=== PATIENT | male | born 1960 | race Caucasian/White ===

== ENCOUNTER 2021-12-01 10:35 | Inpatient (IN) | payer MEDICARE, MEDICAID ==
[~2021-12-01] VITALS: Ht 195.6 cm; Wt 124.7 kg
[2021-12-01 11:41] LABS: HEMOGLOBIN 12.5 gm/dl (14.0-17.5); RED BLOOD COUNT 4.13 M/UL (4.20-5.50); WHITE BLOOD COUNT 9.7 K/UL (4.5-11.0)
[2021-12-01 12:10] LABS: BUN/CREATININE RATIO 25 (0-10)
[2021-12-01] MEDS ORDERED: CYMBALTA30 MG PO (16:08)
[2021-12-01] MEDS ORDERED: DETROL2 MG PO (16:09)
[2021-12-01] MEDS ORDERED: BACLOFEN20 MG PO (16:09)
[2021-12-01] MEDS ORDERED: ZYPREXA20 MG PO (16:09)
[2021-12-01] MEDS ORDERED: SENNA8.6 MG PO (16:10)
[2021-12-01] MEDS ORDERED: LACTULOSE10 GM/15 M PO (16:11)
[2021-12-01] MEDS ORDERED: MILK OF MAGNESI30 ML PO (16:11)
[2021-12-01] MEDS ORDERED: ACETAMINOPHEN500 MG PO (16:11)
[2021-12-01] MEDS ORDERED: VITAMIN B-1100 M1 PO (16:12)
[2021-12-02 05:21] LABS: HEMOGLOBIN 12.2 gm/dl (14.0-17.5); RED BLOOD COUNT 3.99 M/UL (4.20-5.50); WHITE BLOOD COUNT 8.6 K/UL (4.5-11.0)
[2021-12-02 06:16] LABS: BUN/CREATININE RATIO 20 (0-10)
[2021-12-03 04:43] LABS: ACINETOBACTER BAUMANNII Not Detected (Negative); CANDIDA ALBICANS Not Detected (Negative); CANDIDA KRUSEI Not Detected (Negative); CANDIDA TROPICALIS Not Detected (Negative); ENTEROCOCCUS Not Detected (Negative); ESCHERICHIA COLI Not Detected (Negative); HAEMOPHILUS INFLUENZAE Not Detected (Negative); KLEBSIELLA OXYTOCA Not Detected (Negative); KLEBSIELLA PNEUMONIAE Not Detected (Negative); KPC-CARBAPENEM-RESISTANCE GENE Not Detected (Negative); PROTEUS Not Detected (Negative); PSEUDOMONAS AERUGINOSA Not Detected (Negative); SERRATIA MARCESANS Not Detected (Negative); STAPHYLOCOCCUS AUREUS Not Detected (Negative); STREP AGALACTIAE (GROUP B) Not Detected (Negative); STREP PYOGENES (GROUP A) Not Detected (Negative); STREPTOCOCCUS Not Detected (Negative); vanA/B (VANCOMYCIN RESIST GENE Not Detected (Negative)
[2021-12-03 04:46] LABS: STAPHYLOCOCCUS DETECTED (Negative); mecA (METHICILLIN RESIST GENE DETECTED (Negative)
[2021-12-03 05:58] LABS: HEMOGLOBIN 12.1 gm/dl (14.0-17.5); RED BLOOD COUNT 3.92 M/UL (4.20-5.50); WHITE BLOOD COUNT 6.6 K/UL (4.5-11.0)
[2021-12-03 06:32] LABS: BUN/CREATININE RATIO 21 (0-10)
[2021-12-05 07:40] LABS: BUN/CREATININE RATIO 16 (0-10); HEMOGLOBIN 12.2 gm/dl (14.0-17.5); RED BLOOD COUNT 4.05 M/UL (4.20-5.50); WHITE BLOOD COUNT 5.8 K/UL (4.5-11.0)
[2021-12-07 08:06] LABS: HEMOGLOBIN 12.7 gm/dl (14.0-17.5); RED BLOOD COUNT 4.22 M/UL (4.20-5.50); WHITE BLOOD COUNT 6.9 K/UL (4.5-11.0)
[2021-12-07 08:27] LABS: BUN/CREATININE RATIO 23 (0-10)
[2021-12-08 07:39] LABS: BUN/CREATININE RATIO 25 (0-10)
[2021-12-09 08:25] LABS: BUN/CREATININE RATIO 27 (0-10)
[2021-12-10 08:48] LABS: BUN/CREATININE RATIO 31 (0-10)
[2021-12-12 06:58] LABS: HEMOGLOBIN 12.3 gm/dl (14.0-17.5); WHITE BLOOD COUNT 5.8 K/UL (4.5-11.0)
[2021-12-12 07:19] LABS: BUN/CREATININE RATIO 37 (0-10)
[2021-12-13 05:50] LABS: BUN/CREATININE RATIO 43 (0-10)
[2021-12-18 05:26] LABS: RED BLOOD COUNT 4.26 M/UL (4.20-5.50); WHITE BLOOD COUNT 5.4 K/UL (4.5-11.0)
[2021-12-18 05:46] LABS: BUN/CREATININE RATIO 45 (0-10)
[2021-12-24 06:42] LABS: HEMOGLOBIN 12.7 gm/dl (14.0-17.5); RED BLOOD COUNT 4.15 M/UL (4.20-5.50); WHITE BLOOD COUNT 4.8 K/UL (4.5-11.0)
[2021-12-24 07:17] LABS: BUN/CREATININE RATIO 43 (0-10)
[2021-12-27 06:54] LABS: HEMOGLOBIN 12.9 gm/dl (14.0-17.5); RED BLOOD COUNT 4.25 M/UL (4.20-5.50); WHITE BLOOD COUNT 4.7 K/UL (4.5-11.0)
[2021-12-27 07:18] LABS: BUN/CREATININE RATIO 51 (0-10)
[2021-12-28 04:04] LABS: HEMOGLOBIN 13.2 gm/dl (14.0-17.5); RED BLOOD COUNT 4.38 M/UL (4.20-5.50); WHITE BLOOD COUNT 5.3 K/UL (4.5-11.0)
[2021-12-28 04:30] LABS: BUN/CREATININE RATIO 46 (0-10)
[2021-12-29 03:19] LABS: HEMOGLOBIN 13.2 gm/dl (14.0-17.5); RED BLOOD COUNT 4.31 M/UL (4.20-5.50); WHITE BLOOD COUNT 5.9 K/UL (4.5-11.0)
[2021-12-29 03:44] LABS: BUN/CREATININE RATIO 47 (0-10)
[2021-12-30 09:24] LABS: HEMOGLOBIN 13.3 gm/dl (14.0-17.5); RED BLOOD COUNT 4.27 M/UL (4.20-5.50); WHITE BLOOD COUNT 5.2 K/UL (4.5-11.0)
[2021-12-30 09:42] LABS: BUN/CREATININE RATIO 44 (0-10)
[2021-12-30] MEDS ORDERED: POLYETHYLENE GL17 GM PO (15:57)
[2021-12-30] MEDS ORDERED: LOPRESSOR 25 MG25 MG PO (15:57)
[2021-12-30] MEDS ORDERED: AMLODIPINE BESYL5 MG PO (15:57)
== END 2021-12-30 19:05 | disposition home health service (06) | DRG 602 ==
LOC: ER1 10:35 → CDU 15:07 → MED SURG 4 15:07
PROVIDERS: Internal Medicine; Internal Medicine Infectious Disease; Physician Assistant; ADMIT Internal Medicine
PROC: 0S9B3ZX Drainage of Left Hip Joint, Percutaneous Approach, Diagnostic (ICD-10-PCS; principal; 2021-12-04)
DX: L03.116 Cellulitis of left lower limb (principal); G82.50 Quadriplegia, unspecified; L03.317 Cellulitis of buttock; Z66 Do not resuscitate; Z20.822 Contact with and (suspected) exposure to COVID-19; M25.452 Effusion, left hip; N21.0 Calculus in bladder; D64.9 Anemia, unspecified; K59.09 Other constipation; E87.6 Hypokalemia; I10 Essential (primary) hypertension; E66.9 Obesity, unspecified; N31.9 Neuromuscular dysfunction of bladder, unspecified; Z87.828 Personal history of other (healed) physical injury and trauma; I25.2 Old myocardial infarction; Z88.2 Allergy status to sulfonamides; Z90.49 Acquired absence of other specified parts of digestive tract; Z98.890 Other specified postprocedural states; Z82.49 Family history of ischemic heart disease and other diseases of the circulatory system; Z89.422 Acquired absence of other left toe(s); Z74.01 Bed confinement status; Z68.32 Body mass index [BMI] 32.0-32.9, adult
CPT/HCPCS: 36415; 73701; 80048; 80053; 80202; 80307; 83605; 85025; 85027; 86140; 87040; 87070; 87077; 87081; 87150; 87186; 87205; 96374; 96375; 96376; 97110; 97162; 97166; 97530; 97530-GP-CQ; 99285; G0378; J0360; J0692; J0696; J1650; J2270; J2405; J3370; J7030; J7070; Q9967; U0002

== ENCOUNTER → 2022-07-12 | Outpatient (CLI) | payer MEDICARE, OTHER ==
[~2022-07-12] MED LIST: ACETAMINOPHEN500 MG PO; AMLODIPINE BESYL5 MG PO; BACLOFEN20 MG PO; CYMBALTA30 MG PO; DETROL2 MG PO; LACTULOSE10 GM/15 M PO; LOPRESSOR 25 MG25 MG PO; MILK OF MAGNESI30 ML PO; POLYETHYLENE GL17 GM PO; SENNA8.6 MG PO; VITAMIN B-1100 M1 PO; ZYPREXA20 MG PO
== END ==
LOC: US 12:52 → EXRD 13:00 → US 14:30 → EXRD 14:30
DX: I73.9 Peripheral vascular disease, unspecified (principal); G82.20 Paraplegia, unspecified; R22.43 Localized swelling, mass and lump, lower limb, bilateral
CPT/HCPCS: 93925

== ENCOUNTER → 2022-08-06 | Outpatient (CLI) | payer MEDICARE, OTHER | LOC: CT 13:00 | DX: Z01.818 Encounter for other preprocedural examination (principal); M21.371 Foot drop, right foot; M19.071 Primary osteoarthritis, right ankle and foot; M85.871 Other specified disorders of bone density and structure, right ankle and foot | CPT/HCPCS: 73700 ==